=== PATIENT | female | born 1960 | race Caucasian/White ===

== ENCOUNTER 2016-06-28 07:22 | Emergency (ER) | payer OTHER ==
[~2016-06-28] VITALS: Ht 154.9 cm; Wt 70.0 kg
[2016-06-28 07:32] VITALS: BP 171/108; PULSE 89; RESP 18; TEMP 98.6; O2SAT 100
--- NOTE | 2016-06-28 07:36 | PD ---
HPI Chief Complaint: Psychiatric Symptoms Time Seen by Provider: 07:30 Travel History International Travel<30 days: No Contact w/Intl Traveler<30days: No History of Present Illness HPI This is a 56-year-old female who has a history of alcoholism who was brought in under a [place] act from police for suicidal thoughts. She said she was having thoughts of slicing her wrist. She said she would do it in a vertical direction. She says she's been drinking all night. She was just released from [facility] 2 days ago having stayed there for alcohol detox. She says she still is having thoughts of hurting herself. [facility] Past Medical History Narrative Medical Hypertension Depression Social History Alcohol Use: Yes Tobacco Use: No Allergies-Medications (Allergen,Severity, Reaction): Coded Allergies: UNOBTAINABLE (Unverified , 06/28/16) Review of Systems ROS Limitations: Intoxication Physical Exam Narrative GENERAL:Well appearing, no acute distress SKIN: Warm and dry. HEAD: Atraumatic. Normocephalic. EYES: Pupils equal and round. No injection or drainage. ENT: Moist mucous membranes NECK: Trachea midline. CARDIOVASCULAR: Regular rate and rhythm. No murmur appreciated. RESPIRATORY: Clear to auscultation. Breath sounds equal bilaterally. GASTROINTESTINAL: Abdomen soft, non-tender, nondistended. MUSCULOSKELETAL: No obvious deformities. NEUROLOGICAL: Awake and alert. No obvious cranial nerve deficits. Slurred speech , poor coordination PSYCHIATRIC: Poor insight Data Data Last Documented VS Vital Signs Date Time Temp Pulse Resp B/P Pulse Ox O2 Delivery O2 Flow Rate FiO2 06/28/16 07:45 85 18 06/28/16 07:32 98.6 171/108 100 Orders Complete Blood Count With Diff (06/28/16 07:33) Basic Metabolic Panel (Bmp) (06/28/16 07:33) Psych Screen (06/28/16 07:33) Alcohol (Ethanol) (06/28/16 07:33) Drug Screen, Random Urine (06/28/16 07:33) Sodium Chlor 0.9% 1000 Ml Inj (Ns 1000 M (06/28/16 08:45) Labs Laboratory Tests Test 06/28/16 07:47 White Blood Count 6.8 TH/MM3 Red Blood Count 3.30 MIL/MM3 Hemoglobin 11.6 GM/DL Hematocrit 33.7 % Mean Corpuscular Volume 102.3 FL Mean Corpuscular Hemoglobin 35.0 PG Mean Corpuscular Hemoglobin 34.2 % Concent Red Cell Distribution Width 14.6 % Platelet Count 316 TH/MM3 Mean Platelet Volume 7.1 FL Neutrophils (%) (Auto) 28.6 % Lymphocytes (%) (Auto) 52.6 % Monocytes (%) (Auto) 11.9 % Eosinophils (%) (Auto) 2.6 % Basophils (%) (Auto) 4.3 % Neutrophils # (Auto) 2.0 TH/MM3 Lymphocytes # (Auto) 3.6 TH/MM3 Monocytes # (Auto) 0.8 TH/MM3 Eosinophils # (Auto) 0.2 TH/MM3 Basophils # (Auto) 0.3 TH/MM3 CBC Comment DIFF FINAL Differential Comment Sodium Level 143 MEQ/L Potassium Level 3.8 MEQ/L Chloride Level 110 MEQ/L Carbon Dioxide Level 23.9 MEQ/L Anion Gap 9 MEQ/L Blood Urea Nitrogen 17 MG/DL Creatinine 1.49 MG/DL Estimat Glomerular Filtration 36 ML/MIN Rate Random Glucose 94 MG/DL Calcium Level 8.9 MG/DL Urine Opiates Screen NEG Urine Barbiturates Screen NEG Urine Amphetamines Screen NEG Urine Benzodiazepines Screen POS Urine Cocaine Screen NEG Urine Cannabinoids Screen NEG Ethyl Alcohol Level 296 MG/DL MDM Medical Decision Making Medical Screen Exam Complete: Yes Emergency Medical Condition: Yes Interpretation(s) Macrocytosis Renal insufficiency improved from August 2015 Alcohol level is 296 Urine drug screen is positive for benzodiazepines Differential Diagnosis Alcohol intoxication, substance intoxication, depression, substance induced mood disorder Narrative Course This is a 56-year-old female with a history of alcoholism who presents to the emergency department with depression and suicidal ideation. She is also intoxicated. She has a history of alcoholism. Labs are reassuring and improved from prior. Patient is medically cleared to be evaluated by psychiatry. Rhonda Tolbert MD Jun 28, 2016 07:36
[2016-06-28 07:56] LABS: BASOPHIL # 0.3 TH/MM3 (0-0.2); BASOPHIL % 4.3 % (0.0-2.0); EOSINOPHIL # 0.2 TH/MM3 (0-0.4); EOSINOPHIL % 2.6 % (0.0-4.0); HEMATOCRIT 33.7 % (35.0-46.0); HEMO FLAGS DIFF FINAL; LYMPH % 52.6 % (9.0-44.0); LYMPHOCYTE # 3.6 TH/MM3 (1.0-4.8); MEAN CELL VOLUME 102.3 FL (80.0-100.0); MEAN CORPUSCULAR HGB CONC 34.2 % (32.0-36.0); MONO % 11.9 % (0.0-8.0); NEUT % 28.6 % (16.0-70.0); PLATELET COUNT 316 TH/MM3 (150-450); RED CELL DISTRIBUTION WIDTH 14.6 % (11.6-17.2); WHITE BLOOD COUNT 6.8 TH/MM3 (4.0-11.0)
[2016-06-28 08:02] LABS: AMPHETAMINE, URINE NEG (NEG); BARBITURATES, URINE NEG (NEG); COCAINE, URINE NEG (NEG)
[2016-06-28 08:15] LABS: BICARBONATE 23.9 MEQ/L (21.0-32.0); POTASSIUM 3.8 MEQ/L (3.5-5.1)
[2016-06-28] MEDS ORDERED: SODIUM CHLOR 0.9% 1000 ML INJ 1,000 ML IV SCH (08:45)
[2016-06-28] MEDS: ACETAMINOPHEN 500 MG CPLT PO PRN ×2 (10:31→15:08)
[2016-06-28 12:09] VITALS: BP 180/92; PULSE 62; RESP 18; TEMP 98.8; O2SAT 97
[2016-06-28] MEDS: IBUPROFEN 600 MG TAB PO ONE (15:30)
[2016-06-28 18:11] VITALS: BP 148/78; PULSE 58; RESP 16; O2SAT 96
== END 2016-06-28 21:41 ==
LOC: NEPE 07:22 → NEPJ 21:41
DX: R45.851 Suicidal ideations (principal); F10.229 Alcohol dependence with intoxication, unspecified; Y90.8 Blood alcohol level of 240 mg/100 ml or more
CPT/HCPCS: 80048; 80307; 80320; 85025; 96360; 99283; J7030